=== PATIENT | male | born 1950 | race Caucasian/White ===

== ENCOUNTER 2020-05-29 10:45 | Inpatient (IN) ==
[2020-05-29] MEDS: DULoxetine DR 30 mg CAP PO SCH (14:38)
[2020-05-29] MEDS: Heparin 5000 UNITS/ML 1 mL VIAL SUBCUT SCH ×2 (14:38→22:17)
[2020-05-29] MEDS ORDERED: Morphine ORAL.SOLN 10 mg 2 mg/ml UDC 5 ml (10 mg) PO PRN (15:53)
[2020-05-30] MEDS ORDERED: cefTRIAXone 1 gm/50 mL NS BAG 1 GM/50 ML BAG IVPB SCH (00:01)
[2020-05-30] MEDS: Heparin 5000 UNITS/ML 1 mL VIAL SUBCUT SCH ×3 (05:32→20:38)
[2020-05-30 05:50] LABS: ABS Lymphocytes 1.1 10^3/ul (1.0-4.8); ABS Monocytes 1.1 10^3/ul (0-0.8); Hematocrit 36 % (42-52); Hemoglobin 12.2 g/dL (14.0-18.0); Lymphocyte % 5.4 %; Mean Corpuscular HGB Conc 34 g/dL (31-36); Mean Corpuscular Hemoglobin 31 pg (27-31); Mean Corpuscular Volume 91 fL (80-94); Platelet Count 253 10^3/uL (150-450); Red Blood Count 3.96 10^6 /uL (4.18-5.48); Red Cell Distribution Width 14 % (10-15); White Blood Count 20.3 10^3/uL (3.5-10.8)
[2020-05-30] MEDS ORDERED: Azithromycin 500 mg/250 ml NS 500 MG/250 ML BAG IVPB SCH (06:00)
[2020-05-30 06:14] LABS: BUN/Creatinine Ratio 29.4 (8-20); Blood Urea Nitrogen 25 mg/dL (6-24); CO2 Carbon Dioxide 24 mmol/L (22-32); Calcium 8.5 mg/dL (8.6-10.3); Chloride 108 mmol/L (101-111); EGFR African American 107.8 (>60); EGFR Non-African American 89.1 (>60); Glucose 124 mg/dL (70-100); Sodium 139 mmol/L (135-145)
[2020-05-30 06:17] LABS: Anion Gap 7 mmol/L (2-11)
[2020-05-30] MEDS: DULoxetine DR 30 mg CAP PO SCH (08:08)
[2020-05-30 11:20] LABS: Potassium Redraw 4.3 mmol/L (3.5-5.0)
[2020-05-31] MEDS: Heparin 5000 UNITS/ML 1 mL VIAL SUBCUT SCH ×3 (06:00→22:20)
[2020-05-31 07:01] LABS: ABS Lymphocytes 1.4 10^3/ul (1.0-4.8); ABS Monocytes 0.7 10^3/ul (0-0.8); ABS Neutrophils 10.2 10^3/ul (1.5-7.7); Eosinophil % 0.2 %; Hematocrit 37 % (42-52); Hemoglobin 12.8 g/dL (14.0-18.0); Lymphocyte % 11.4 %; Mean Corpuscular HGB Conc 34 g/dL (31-36); Mean Corpuscular Hemoglobin 31 pg (27-31); Mean Corpuscular Volume 91 fL (80-94); Mean Platelet Volume 8.1 fL (7.4-10.4); Platelet Count 272 10^3/uL (150-450); Red Blood Count 4.12 10^6 /uL (4.18-5.48); Red Cell Distribution Width 13 % (10-15); White Blood Count 12.4 10^3/uL (3.5-10.8)
[2020-05-31] MEDS: DULoxetine DR 30 mg CAP PO SCH (07:54)
[2020-06-01] MEDS: Heparin 5000 UNITS/ML 1 mL VIAL SUBCUT SCH ×3 (05:46→20:17)
[2020-06-01] MEDS: DULoxetine DR 30 mg CAP PO SCH (09:34)
[2020-06-02] MEDS: Heparin 5000 UNITS/ML 1 mL VIAL SUBCUT SCH (05:10)
[2020-06-02] MEDS: DULoxetine DR 30 mg CAP PO SCH (08:43)
[2020-06-02] MEDS ORDERED: Influenza VAC *QUAD* 2020-21* 0.5 ML SYRINGE IM ONE (11:00)
[2020-06-02 11:16] VITALS: BP 117/58
== END 2020-06-02 13:45 | disposition home or self-care (01) | DRG 193 ==
LOC: MED 11:28 → INTOOBSV 11:28 → MED 06-02 04:03
PROVIDERS: ADMIT Student in an Organized Health Care Education/Training Program; ATTEND Pediatrics

== ENCOUNTER 2020-09-04 12:34 | Inpatient (IN) ==
[2020-09-04 13:53] LABS: ABS Lymphocytes 0.5 10^3/ul (1.0-4.8); ABS Monocytes 0.3 10^3/ul (0-0.8); ABS Neutrophils 3.3 10^3/ul (1.5-7.7); Hematocrit 36 % (42-52); Hemoglobin 12.4 g/dL (14.0-18.0); Lymphocyte % 12.7 %; Mean Corpuscular HGB Conc 35 g/dL (31-36); Mean Corpuscular Hemoglobin 30 pg (27-31); Mean Corpuscular Volume 87 fL (80-94); Mean Platelet Volume 8.1 fL (7.4-10.4); Nucleated Red Blood Cells % 0.1; Platelet Count 210 10^3/uL (150-450); Red Blood Count 4.11 10^6 /uL (4.18-5.48); Red Cell Distribution Width 13 % (10-15); White Blood Count 4.2 10^3/uL (3.5-10.8)
[2020-09-04 14:10] LABS: Albumin 3.7 g/dL (3.2-5.2); Albumin/Globulin Ratio 1.3 (1-3); BUN/Creatinine Ratio 17.3 (8-20); Calcium 8.3 mg/dL (8.6-10.3); EGFR Non-African American 94.2 (>60); Globulin 2.9 g/dL (2-4); Magnesium 1.8 mg/dL (1.9-2.7); Potassium 3.5 mmol/L (3.5-5.0); Total Bilirubin 0.5 mg/dL (0.2-1.0); Total Protein 6.6 g/dL (6.4-8.9)
[2020-09-04 14:56] LABS: TSH Ultra Thyroid Stim Horm 0.58 mcIU/mL (0.34-5.60)
[2020-09-04] MEDS ORDERED: Magnesium Sulfate 2 gm BAG 2 GM/50 ML BAG IVPB ONE (16:05)
[2020-09-04] MEDS ORDERED: guaiFENesin 100 mg/5 ml LIQ unit dose cup PO PRN (16:09)
[2020-09-04] MEDS ORDERED: Al Hydrox/Mg Hydrox/Simet LIQ 30 ML UDC PO PRN (16:09)
[2020-09-04] MEDS ORDERED: Bismuth Subsalicylate 30 ML/527 MG ML PO PRN (16:09)
[2020-09-04] MEDS ORDERED: Polyethylene Glycol 3350 17 GM PACKET PO PRN (16:09)
[2020-09-04] MEDS: Calcium Carb (TUMS) 500 mg CHEW TAB PO SCH ×2 (20:57→21:37)
[2020-09-04] MEDS: Carbidopa/Levodop 25/100 MG TAB PO SCH (20:57)
[2020-09-04] MEDS: Magnesium Hydroxide LIQ 30 ML UDC PO SCH (20:58)
[2020-09-04] MEDS: Senna TAB 8.6 mg TAB PO SCH (20:58)
[2020-09-04] MEDS: Morphine 15 mg TAB (NF) PO SCH ×2 (21:04→21:38)
[2020-09-04] MEDS: Morphine ORAL.SOLN 10 mg 2 mg/ml UDC 5 ml (10 mg) PO SCH (21:37)
[2020-09-04] MEDS: Neosporin TOPICAL OINT PACKET TOPICAL SCH (21:37)
[2020-09-05 07:30] LABS: ABS Lymphocytes 0.8 10^3/ul (1.0-4.8); ABS Monocytes 0.3 10^3/ul (0-0.8); ABS Neutrophils 3.5 10^3/ul (1.5-7.7); Hematocrit 35 % (42-52); Hemoglobin 12.7 g/dL (14.0-18.0); Lymphocyte % 17.9 %; Mean Corpuscular HGB Conc 36 g/dL (31-36); Mean Corpuscular Hemoglobin 31 pg (27-31); Mean Corpuscular Volume 85 fL (80-94); Mean Platelet Volume 8.4 fL (7.4-10.4); Platelet Count 219 10^3/uL (150-450); Red Blood Count 4.14 10^6 /uL (4.18-5.48); Red Cell Distribution Width 13 % (10-15); White Blood Count 4.7 10^3/uL (3.5-10.8)
[2020-09-05 07:48] LABS: BUN/Creatinine Ratio 16.9 (8-20); Calcium 8.4 mg/dL (8.6-10.3); EGFR African American 132.7 (>60); EGFR Non-African American 109.7 (>60)
[2020-09-05] MEDS: Carbidopa/Levodop 25/100 MG TAB PO SCH ×2 (08:20→21:48)
[2020-09-05] MEDS: Calcium Carb (TUMS) 500 mg CHEW TAB PO SCH ×2 (08:20→21:48)
[2020-09-05] MEDS: DULoxetine DR 30 mg CAP PO SCH (08:20)
[2020-09-05] MEDS: Magnesium Hydroxide LIQ 30 ML UDC PO SCH ×2 (08:21→21:49)
[2020-09-05] MEDS: Morphine ORAL.SOLN 10 mg 2 mg/ml UDC 5 ml (10 mg) PO SCH ×4 (08:21→21:47)
[2020-09-05] MEDS: Neosporin TOPICAL OINT PACKET TOPICAL SCH (08:22)
[2020-09-05] MEDS ORDERED: NS 0.9% 1000 ml BAG 1,000 ML IV SCH (09:00)
[2020-09-05] MEDS: KCL 20 MEQ/100 ML IVPREMIX 20 MEQ/100 ML BAG IV SCH ×2 (09:08→12:51)
[2020-09-05] MEDS: Potassium Chlor 20 meq TAB.ER PO SCH ×2 (09:08→12:51)
[2020-09-05 10:10] LABS: Magnesium 1.8 mg/dL (1.9-2.7)
[2020-09-05] MEDS: Senna TAB 8.6 mg TAB PO SCH (21:49)
[2020-09-06 06:12] LABS: BUN/Creatinine Ratio 19.7 (8-20); Calcium 8.3 mg/dL (8.6-10.3); EGFR African American 122.7 (>60); EGFR Non-African American 101.4 (>60); Potassium 4.4 mmol/L (3.5-5.0)
[2020-09-06] MEDS: DULoxetine DR 30 mg CAP PO SCH (10:23)
[2020-09-06] MEDS: Morphine ORAL.SOLN 10 mg 2 mg/ml UDC 5 ml (10 mg) PO SCH ×4 (10:23→22:22)
[2020-09-06] MEDS: Neosporin TOPICAL OINT PACKET TOPICAL SCH (10:24)
[2020-09-06] MEDS: Carbidopa/Levodop 25/100 MG TAB PO SCH ×2 (10:24→22:21)
[2020-09-06] MEDS: Magnesium Hydroxide LIQ 30 ML UDC PO SCH ×2 (10:24→22:22)
[2020-09-06] MEDS: Calcium Carb (TUMS) 500 mg CHEW TAB PO SCH ×2 (10:24→22:19)
[2020-09-06] MEDS: Senna TAB 8.6 mg TAB PO SCH (22:22)
[2020-09-07] MEDS: Morphine ORAL.SOLN 10 mg 2 mg/ml UDC 5 ml (10 mg) PO SCH ×4 (12:52→20:47)
[2020-09-07] MEDS: Calcium Carb (TUMS) 500 mg CHEW TAB PO SCH ×2 (13:18→20:21)
[2020-09-07] MEDS: Enoxaparin 40 MG/0.4 ML SYR SUBCUT SCH (13:18)
[2020-09-07] MEDS: Magnesium Hydroxide LIQ 30 ML UDC PO SCH ×2 (13:18→20:45)
[2020-09-07] MEDS: Carbidopa/Levodop 25/100 MG TAB PO SCH ×2 (13:18→20:39)
[2020-09-07] MEDS: DULoxetine DR 30 mg CAP PO SCH (13:18)
[2020-09-07] MEDS: Neosporin TOPICAL OINT PACKET TOPICAL SCH (13:19)
[2020-09-07] MEDS: Senna TAB 8.6 mg TAB PO SCH (20:38)
[2020-09-08] MEDS ORDERED: Remdesivir 100 mg Vial 200 MG in NS 0.9% 250 ml 210 ML IV ONE (07:00)
[2020-09-08 07:50] LABS: ABS Lymphocytes 0.5 10^3/ul (1.0-4.8); ABS Monocytes 0.3 10^3/ul (0-0.8); Hematocrit 32 % (42-52); Hemoglobin 11.3 g/dL (14.0-18.0); Lymphocyte % 7.2 %; Mean Corpuscular HGB Conc 35 g/dL (31-36); Mean Corpuscular Hemoglobin 30 pg (27-31); Mean Corpuscular Volume 86 fL (80-94); Mean Platelet Volume 8.2 fL (7.4-10.4); Platelet Count 247 10^3/uL (150-450); Red Blood Count 3.72 10^6 /uL (4.18-5.48); Red Cell Distribution Width 14 % (10-15); White Blood Count 6.8 10^3/uL (3.5-10.8)
[2020-09-08 07:54] LABS: Albumin 3.3 g/dL (3.2-5.2); Calcium 7.9 mg/dL (8.6-10.3); Potassium 3.5 mmol/L (3.5-5.0); Total Bilirubin 0.6 mg/dL (0.2-1.0)
[2020-09-08 08:00] LABS: Albumin/Globulin Ratio 1.1 (1-3); BUN/Creatinine Ratio 24.6 (8-20); EGFR African American 137.2 (>60); EGFR Non-African American 113.4 (>60); Globulin 2.9 g/dL (2-4); Total Protein 6.2 g/dL (6.4-8.9)
[2020-09-08] MEDS: DULoxetine DR 30 mg CAP PO SCH (08:57)
[2020-09-08] MEDS: Carbidopa/Levodop 25/100 MG TAB PO SCH ×2 (08:57→20:18)
[2020-09-08] MEDS: Enoxaparin 40 MG/0.4 ML SYR SUBCUT SCH (08:58)
[2020-09-08] MEDS: Calcium Carb (TUMS) 500 mg CHEW TAB PO SCH ×2 (08:58→20:17)
[2020-09-08] MEDS: Morphine ORAL.SOLN 10 mg 2 mg/ml UDC 5 ml (10 mg) PO SCH ×4 (08:58→20:16)
[2020-09-08] MEDS: Neosporin TOPICAL OINT PACKET TOPICAL SCH (08:59)
[2020-09-08] MEDS: Magnesium Hydroxide LIQ 30 ML UDC PO SCH ×2 (08:59→20:20)
[2020-09-08 17:01] LABS: C Reactive Protein 43.31 mg/L (<8.01)
[2020-09-08 17:01] LABS: C Reactive Protein 129.24 mg/L (<8.01)
[2020-09-08] MEDS: Senna TAB 8.6 mg TAB PO SCH (20:18)
[2020-09-09 07:09] LABS: ABS Lymphocytes 0.6 10^3/ul (1.0-4.8); ABS Monocytes 0.4 10^3/ul (0-0.8); ABS Neutrophils 4.2 10^3/ul (1.5-7.7); Hematocrit 35 % (42-52); Lymphocyte % 12.4 %; Mean Corpuscular HGB Conc 35 g/dL (31-36); Mean Corpuscular Hemoglobin 30 pg (27-31); Mean Corpuscular Volume 87 fL (80-94); Mean Platelet Volume 8.7 fL (7.4-10.4); Nucleated Red Blood Cells % 0.1; Platelet Count 324 10^3/uL (150-450); Red Blood Count 3.98 10^6 /uL (4.18-5.48); Red Cell Distribution Width 13 % (10-15); White Blood Count 5.2 10^3/uL (3.5-10.8)
[2020-09-09 07:25] LABS: Albumin 3.3 g/dL (3.2-5.2); Albumin/Globulin Ratio 1.1 (1-3); BUN/Creatinine Ratio 34.2 (8-20); Calcium 8.4 mg/dL (8.6-10.3); EGFR African American 117.3 (>60); Magnesium 2.4 mg/dL (1.9-2.7); Potassium 4.4 mmol/L (3.5-5.0); Total Bilirubin 0.6 mg/dL (0.2-1.0); Total Protein 6.3 g/dL (6.4-8.9)
[2020-09-09 08:23] LABS: C Reactive Protein 140.04 mg/L (<8.01)
[2020-09-09] MEDS: Morphine ORAL.SOLN 10 mg 2 mg/ml UDC 5 ml (10 mg) PO SCH ×4 (09:40→21:12)
[2020-09-09] MEDS: Remdesivir 100 mg Vial 100 MG in NS 0.9% 250 ml 230 ML IV SCH (09:42)
[2020-09-09] MEDS: Magnesium Hydroxide LIQ 30 ML UDC PO SCH ×2 (09:42→19:38)
[2020-09-09] MEDS: Carbidopa/Levodop 25/100 MG TAB PO SCH ×2 (09:43→19:39)
[2020-09-09] MEDS: DULoxetine DR 30 mg CAP PO SCH (09:43)
[2020-09-09] MEDS: Calcium Carb (TUMS) 500 mg CHEW TAB PO SCH ×2 (09:43→19:38)
[2020-09-09] MEDS: Enoxaparin 40 MG/0.4 ML SYR SUBCUT SCH (10:04)
[2020-09-09] MEDS: Neosporin TOPICAL OINT PACKET TOPICAL SCH (10:04)
[2020-09-09] MEDS: Senna TAB 8.6 mg TAB PO SCH (19:39)
[2020-09-10] MEDS: Remdesivir 100 mg Vial 100 MG in NS 0.9% 250 ml 230 ML IV SCH ×2 (10:10→11:53)
[2020-09-10] MEDS: Magnesium Hydroxide LIQ 30 ML UDC PO SCH ×2 (10:19→19:41)
[2020-09-10] MEDS: Calcium Carb (TUMS) 500 mg CHEW TAB PO SCH ×2 (10:21→19:39)
[2020-09-10] MEDS: Carbidopa/Levodop 25/100 MG TAB PO SCH ×2 (10:22→19:40)
[2020-09-10] MEDS: DULoxetine DR 30 mg CAP PO SCH (10:22)
[2020-09-10] MEDS: Enoxaparin 40 MG/0.4 ML SYR SUBCUT SCH ×2 (10:27→10:56)
[2020-09-10] MEDS: Morphine ORAL.SOLN 10 mg 2 mg/ml UDC 5 ml (10 mg) PO SCH ×5 (10:28→19:41)
[2020-09-10] MEDS: Neosporin TOPICAL OINT PACKET TOPICAL SCH (11:19)
[2020-09-10] MEDS: Enoxaparin 30 MG/0.3 ML SYR SUBCUT SCH (19:39)
[2020-09-10] MEDS: Senna TAB 8.6 mg TAB PO SCH (19:40)
[2020-09-11] MEDS: Magnesium Hydroxide LIQ 30 ML UDC PO SCH ×2 (08:00→21:18)
[2020-09-11] MEDS: Enoxaparin 30 MG/0.3 ML SYR SUBCUT SCH ×2 (08:00→21:03)
[2020-09-11] MEDS: Calcium Carb (TUMS) 500 mg CHEW TAB PO SCH ×2 (08:00→21:04)
[2020-09-11] MEDS: Morphine ORAL.SOLN 10 mg 2 mg/ml UDC 5 ml (10 mg) PO SCH ×4 (08:01→21:09)
[2020-09-11] MEDS: Carbidopa/Levodop 25/100 MG TAB PO SCH ×2 (08:02→21:04)
[2020-09-11] MEDS: DULoxetine DR 30 mg CAP PO SCH (08:02)
[2020-09-11] MEDS: Neosporin TOPICAL OINT PACKET TOPICAL SCH (08:27)
[2020-09-11] MEDS: Remdesivir 100 mg Vial 100 MG in NS 0.9% 250 ml 230 ML IV SCH ×2 (09:16→10:09)
[2020-09-11] MEDS ORDERED: Lidocaine PATCH 5% PATCH ONE (09:20)
[2020-09-11] MEDS: Lidocaine PATCH 5% PATCH TRANSDERM SCH (11:05)
[2020-09-11 12:26] LABS: Urine Appearance Clear; Urine Bilirubin Negative (Negative); Urine Blood Negative (Negative); Urine Color Yellow; Urine Glucose Negative (Negative); Urine Ketones Trace (Negative); Urine Nitrite Negative (Negative); Urine Protein Negative (Negative); Urine Specific Gravity 1.028 (1.010-1.030); Urine Urobilinogen Negative (Negative)
[2020-09-11] MEDS: Senna TAB 8.6 mg TAB PO SCH (21:04)
[2020-09-11] MEDS: Lidocaine Patch REMOVE PATCH PATCH OFF SCH (21:18)
[2020-09-12 07:52] LABS: ABS Monocytes 0.8 10^3/ul (0-0.8); ABS Neutrophils 5.6 10^3/ul (1.5-7.7); Hematocrit 33 % (42-52); Hemoglobin 11.5 g/dL (14.0-18.0); Lymphocyte % 13.9 %; Mean Corpuscular HGB Conc 35 g/dL (31-36); Mean Corpuscular Hemoglobin 30 pg (27-31); Mean Corpuscular Volume 87 fL (80-94); Mean Platelet Volume 8.7 fL (7.4-10.4); Platelet Count 422 10^3/uL (150-450); Red Blood Count 3.82 10^6 /uL (4.18-5.48); Red Cell Distribution Width 13 % (10-15); White Blood Count 7.5 10^3/uL (3.5-10.8)
[2020-09-12 08:09] LABS: BUN/Creatinine Ratio 36.7 (8-20); EGFR Non-African American 96.7 (>60); Potassium 4.7 mmol/L (3.5-5.0)
[2020-09-12 08:51] LABS: Calcium 8.3 mg/dL (8.6-10.3)
[2020-09-12] MEDS: DULoxetine DR 30 mg CAP PO SCH (10:12)
[2020-09-12] MEDS: Carbidopa/Levodop 25/100 MG TAB PO SCH ×2 (10:12→21:18)
[2020-09-12] MEDS: Enoxaparin 30 MG/0.3 ML SYR SUBCUT SCH ×2 (10:13→21:18)
[2020-09-12] MEDS: Calcium Carb (TUMS) 500 mg CHEW TAB PO SCH ×2 (10:13→21:15)
[2020-09-12] MEDS: Lidocaine PATCH 5% PATCH TRANSDERM SCH (10:13)
[2020-09-12] MEDS: Morphine ORAL.SOLN 10 mg 2 mg/ml UDC 5 ml (10 mg) PO SCH ×4 (10:14→21:17)
[2020-09-12] MEDS: Neosporin TOPICAL OINT PACKET TOPICAL SCH (10:14)
[2020-09-12] MEDS: Magnesium Hydroxide LIQ 30 ML UDC PO SCH ×2 (10:14→21:19)
[2020-09-12] MEDS: Remdesivir 100 mg Vial 100 MG in NS 0.9% 250 ml 230 ML IV SCH (10:15)
[2020-09-12] MEDS: Senna TAB 8.6 mg TAB PO SCH (21:18)
[2020-09-12] MEDS: Lidocaine Patch REMOVE PATCH PATCH OFF SCH (21:21)
[2020-09-13] MEDS: Lidocaine PATCH 5% PATCH TRANSDERM SCH (08:33)
[2020-09-13] MEDS: Morphine ORAL.SOLN 10 mg 2 mg/ml UDC 5 ml (10 mg) PO SCH ×4 (08:38→20:24)
[2020-09-13] MEDS: DULoxetine DR 30 mg CAP PO SCH (08:39)
[2020-09-13] MEDS: Calcium Carb (TUMS) 500 mg CHEW TAB PO SCH ×2 (08:39→20:22)
[2020-09-13] MEDS: Carbidopa/Levodop 25/100 MG TAB PO SCH ×2 (08:39→20:26)
[2020-09-13] MEDS: Enoxaparin 30 MG/0.3 ML SYR SUBCUT SCH ×2 (08:40→20:22)
[2020-09-13] MEDS: Magnesium Hydroxide LIQ 30 ML UDC PO SCH ×2 (08:54→20:40)
[2020-09-13] MEDS: Neosporin TOPICAL OINT PACKET TOPICAL SCH (08:54)
[2020-09-13] MEDS: Lidocaine Patch REMOVE PATCH PATCH OFF SCH (20:40)
[2020-09-13] MEDS: Senna TAB 8.6 mg TAB PO SCH (20:40)
[2020-09-14] MEDS: Morphine ORAL.SOLN 10 mg 2 mg/ml UDC 5 ml (10 mg) PO SCH ×4 (09:38→22:47)
[2020-09-14] MEDS: Lidocaine PATCH 5% PATCH TRANSDERM SCH (09:39)
[2020-09-14] MEDS: Carbidopa/Levodop 25/100 MG TAB PO SCH ×2 (09:40→22:46)
[2020-09-14] MEDS: Calcium Carb (TUMS) 500 mg CHEW TAB PO SCH ×2 (09:40→22:46)
[2020-09-14] MEDS: Enoxaparin 30 MG/0.3 ML SYR SUBCUT SCH ×2 (09:40→22:46)
[2020-09-14] MEDS: DULoxetine DR 30 mg CAP PO SCH (09:40)
[2020-09-14] MEDS: Magnesium Hydroxide LIQ 30 ML UDC PO SCH ×2 (09:41→22:47)
[2020-09-14] MEDS: Neosporin TOPICAL OINT PACKET TOPICAL SCH (09:46)
[2020-09-14] MEDS: Lidocaine Patch REMOVE PATCH PATCH OFF SCH (22:46)
[2020-09-14] MEDS: Senna TAB 8.6 mg TAB PO SCH (22:46)
[2020-09-15] MEDS: DULoxetine DR 30 mg CAP PO SCH (08:13)
[2020-09-15] MEDS: Calcium Carb (TUMS) 500 mg CHEW TAB PO SCH (08:13)
[2020-09-15] MEDS: Carbidopa/Levodop 25/100 MG TAB PO SCH (08:14)
[2020-09-15] MEDS: Lidocaine PATCH 5% PATCH TRANSDERM SCH (08:15)
[2020-09-15] MEDS: Morphine ORAL.SOLN 10 mg 2 mg/ml UDC 5 ml (10 mg) PO SCH (08:15)
[2020-09-15] MEDS: Neosporin TOPICAL OINT PACKET TOPICAL SCH (08:21)
[2020-09-15] MEDS: Magnesium Hydroxide LIQ 30 ML UDC PO SCH (08:23)
[2020-09-15] MEDS: Enoxaparin 30 MG/0.3 ML SYR SUBCUT SCH (08:27)
[2020-09-15 10:18] VITALS: BP 122/61
== END 2020-09-15 11:25 | DRG 177 ==
LOC: ED 12:34 → MED 12:34
PROVIDERS: ADMIT Student in an Organized Health Care Education/Training Program; ATTEND Internal Medicine

== ENCOUNTER 2023-07-09 16:35 | Inpatient (IN) ==
[2023-07-09 18:31] LABS: ABS Lymphocytes 1.1 10^3/uL (1.0-4.8); ABS Monocytes 0.9 10^3/uL (0.0-1.1); ABS Neutrophils 13.7 10^3/uL (1.5-7.6); ABS Nucleated RBC 0.08 10^3/ul; Hematocrit 49.4 % (38-53); Lymphocyte % 6.7 %; Mean Corpuscular Hemoglobin 30.9 pg (27-33); Mean Corpuscular Hgb Conc 34.4 g/dL (31-36); Mean Corpuscular Volume 89.8 fL (80-97); Mean Platelet Volume 8.1 fL (7.5-11.2); Nucleated Red Blood Cells % 0.5 %/100WBC (0.0-0.8); Platelet Count 287 10^3/uL (150-450); Red Cell Distribution Width 13.8 % (12-17); White Blood Count 15.7 10^3/uL (3.6-10.2)
[2023-07-09 18:35] LABS: Albumin 4.8 g/dL (3.2-5.2); Albumin/Globulin Ratio 1.5 (1-3); Calcium 9.9 mg/dL (8.6-10.3); Creatinine, Serum 1.54 mg/dL (0.67-1.17); Globulin 3.3 g/dL (2-4); Potassium 3.8 mmol/L (3.5-5.0); Total Bilirubin 1.2 mg/dL (0.2-1.0); Total Protein 8.1 g/dL (6.4-8.9); eGFR CKD-EPI 47.3 (>60)
[2023-07-09] MEDS ORDERED: Iodixanol (CONTRAST) 320 MG/ML 100 ML SDV IV ONE (18:59)
[2023-07-09] MEDS ORDERED: Lactated Ringers 1000 ml BAG 1,000 ML IV ONE (19:12)
[2023-07-10] MEDS ORDERED: cefTRIAXone 1 gm/50 mL D5W 1 GM/50 ML BAG IV ONE (00:53)
[2023-07-10 01:21] LABS: Hematocrit 44.4 % (38-53); Hemoglobin 15.2 g/dL (13.2-16.3); Mean Corpuscular Hemoglobin 30.6 pg (27-33); Mean Corpuscular Hgb Conc 34.3 g/dL (31-36); Mean Corpuscular Volume 89.3 fL (80-97); Mean Platelet Volume 7.9 fL (7.5-11.2); Platelet Count 246 10^3/uL (150-450); Red Blood Count 4.98 10^6/uL (4.06-5.63); Red Cell Distribution Width 13.6 % (12-17); White Blood Count 16.8 10^3/uL (3.6-10.2)
[2023-07-10 01:58] LABS: C Reactive Protein 108.94 mg/L (<8.01); Calcium 9.4 mg/dL (8.6-10.3); Creatinine, Serum 1.33 mg/dL (0.67-1.17); Potassium 3.9 mmol/L (3.5-5.0); eGFR CKD-EPI 56.4 (>60)
[2023-07-10 01:58] LABS: ABS Basophils 0.1 10^3/uL (0.0-0.1); ABS Lymphocytes 0.8 10^3/uL (1.0-4.8); ABS Monocytes 1.1 10^3/uL (0.0-1.1); ABS Neutrophils 14.8 10^3/uL (1.5-7.6); ABS Nucleated RBC 0.01 10^3/ul; Lymphocyte % 4.8 %; Nucleated Red Blood Cells % 0.1 %/100WBC (0.0-0.8)
[2023-07-10] MEDS ORDERED: Lactated Ringers 1000 ml BAG 1,000 ML IV ONE ×2 (02:07→12:09)
[2023-07-10 02:28] LABS: PCO2 Arterial 32 mmHg (35-45); PO2 Arterial 67 mmHg (80-100)
[2023-07-10] MEDS ORDERED: D5W 1000 ml BAG 1,000 ML IV SCH ×3 (04:00→19:00)
[2023-07-10] MEDS ORDERED: Azithromycin 500 mg/250 ml NS 500 MG/250 ML BAG IVPB SCH (06:00)
[2023-07-10 07:20] LABS: Calcium 9.4 mg/dL (8.6-10.3); Creatinine, Serum 1.26 mg/dL (0.67-1.17); Potassium 3.8 mmol/L (3.5-5.0); eGFR CKD-EPI 60.2 (>60)
[2023-07-10 23:07] LABS: Calcium 8.6 mg/dL (8.6-10.3); Creatinine, Serum 1.13 mg/dL (0.67-1.17); Potassium 3.4 mmol/L (3.5-5.0); eGFR CKD-EPI 68.6 (>60)
[2023-07-11] MEDS ORDERED: cefTRIAXone 1 gm/50 mL D5W 1 GM/50 ML BAG IV SCH (02:00)
[2023-07-11] MEDS: cefTRIAXone 1 gm/50 mL D5W 1 GM/50 ML BAG IV SCH (02:04)
[2023-07-11] MEDS ORDERED: Azithromycin 500 mg/250 ml NS 500 MG/250 ML BAG IVPB SCH (06:00)
[2023-07-11 06:27] LABS: Hematocrit 36.7 % (38-53); Hemoglobin 12.6 g/dL (13.2-16.3); Mean Corpuscular Hemoglobin 30.6 pg (27-33); Mean Corpuscular Hgb Conc 34.4 g/dL (31-36); Mean Platelet Volume 8.6 fL (7.5-11.2); Platelet Count 194 10^3/uL (150-450); Red Blood Count 4.12 10^6/uL (4.06-5.63); Red Cell Distribution Width 13.4 % (12-17); White Blood Count 17.2 10^3/uL (3.6-10.2)
[2023-07-11 06:50] LABS: ABS Basophils 0.1 10^3/uL (0.0-0.1); ABS Eosinophils 0.1 10^3/uL (0.0-0.5); ABS Lymphocytes 1.4 10^3/uL (1.0-4.8); ABS Monocytes 0.7 10^3/uL (0.0-1.1); Calcium 8.3 mg/dL (8.6-10.3); Creatinine, Serum 1.1 mg/dL (0.67-1.17); Eosinophil % 0.4 %; Magnesium 2.2 mg/dL (1.9-2.7); Potassium 3.2 mmol/L (3.5-5.0); eGFR CKD-EPI 70.9 (>60)
[2023-07-11] MEDS ORDERED: Lactated Ringers 1000 ml BAG 1,000 ML IV ONE (08:13)
[2023-07-11 12:09] LABS: Urine Appearance Cloudy; Urine Bilirubin Negative (Negative); Urine Blood 3+ (Negative); Urine Color Amber; Urine Glucose Negative (Negative); Urine Ketones Negative (Negative); Urine Nitrite Negative (Negative); Urine Protein 1+(30 mg/dL) (Negative); Urine Specific Gravity 1.027 (1.002-1.030); Urine Urobilinogen Negative (Negative)
[2023-07-11 12:42] LABS: Urine Bacteria Absent (Absent); Urine Red Blood Cell 3+(>10/hpf) (Absent); Urine White Blood Cell 3+(>20/hpf) (Absent)
[2023-07-11] MEDS: Azithromycin 500 mg/250 ml NS 500 MG/250 ML BAG IVPB SCH (14:07)
[2023-07-11] MEDS ORDERED: D5W 1000 ml BAG 1,000 ML IV SCH (21:00)
[2023-07-11] MEDS: Potassium Chloride LIQUID 20 MEQ/15 ML LIQUID PO SCH ×2 (22:00→23:53)
[2023-07-12] MEDS: cefTRIAXone 1 gm/50 mL D5W 1 GM/50 ML BAG IV SCH (01:17)
[2023-07-12 08:48] LABS: ABS Eosinophils 0.1 10^3/uL (0.0-0.5); ABS Lymphocytes 0.8 10^3/uL (1.0-4.8); ABS Monocytes 0.5 10^3/uL (0.0-1.1); ABS Neutrophils 9.9 10^3/uL (1.5-7.6); Eosinophil % 0.5 %; Hematocrit 37.2 % (38-53); Hemoglobin 12.9 g/dL (13.2-16.3); Lymphocyte % 6.8 %; Mean Corpuscular Hemoglobin 30.8 pg (27-33); Mean Corpuscular Hgb Conc 34.8 g/dL (31-36); Mean Corpuscular Volume 88.5 fL (80-97); Platelet Count 218 10^3/uL (150-450); Red Cell Distribution Width 13.3 % (12-17); White Blood Count 11.3 10^3/uL (3.6-10.2)
[2023-07-12 09:04] LABS: Calcium 8.4 mg/dL (8.6-10.3); Creatinine, Serum 0.79 mg/dL (0.67-1.17); Magnesium 2.2 mg/dL (1.9-2.7); Potassium 3.6 mmol/L (3.5-5.0); eGFR CKD-EPI 93.8 (>60)
[2023-07-12] MEDS: Azithromycin 500 mg/250 ml NS 500 MG/250 ML BAG IVPB SCH (15:09)
[2023-07-13] MEDS: cefTRIAXone 1 gm/50 mL D5W 1 GM/50 ML BAG IV SCH (03:37)
[2023-07-13 08:58] LABS: ABS Eosinophils 0.1 10^3/uL (0.0-0.5); ABS Lymphocytes 0.7 10^3/uL (1.0-4.8); ABS Monocytes 0.6 10^3/uL (0.0-1.1); ABS Nucleated RBC 0.01 10^3/ul; Eosinophil % 0.8 %; Hemoglobin 13.6 g/dL (13.2-16.3); Lymphocyte % 7.8 %; Mean Corpuscular Hemoglobin 30.9 pg (27-33); Mean Corpuscular Volume 88.3 fL (80-97); Mean Platelet Volume 8.8 fL (7.5-11.2); Nucleated Red Blood Cells % 0.1 %/100WBC (0.0-0.8); Platelet Count 231 10^3/uL (150-450); Red Blood Count 4.41 10^6/uL (4.06-5.63); Red Cell Distribution Width 13.4 % (12-17); White Blood Count 9.4 10^3/uL (3.6-10.2)
[2023-07-13 09:22] LABS: Albumin 3.4 g/dL (3.2-5.2); Albumin/Globulin Ratio 1.2 (1-3); Calcium 8.3 mg/dL (8.6-10.3); Creatinine, Serum 0.74 mg/dL (0.67-1.17); Globulin 2.9 g/dL (2-4); Potassium 3.3 mmol/L (3.5-5.0); Total Bilirubin 0.7 mg/dL (0.2-1.0); Total Protein 6.3 g/dL (6.4-8.9); eGFR CKD-EPI 95.7 (>60)
[2023-07-13] MEDS: Azithromycin 500 mg/250 ml NS 500 MG/250 ML BAG IVPB SCH (14:21)
[2023-07-13] MEDS ORDERED: Potassium Chlor 20 meq TAB.ER PO ONE (15:40)
[2023-07-13] MEDS ORDERED: KCL 20 MEQ/100 ML IVPREMIX 20 MEQ/100 ML BAG IV ONE (17:30)
[2023-07-13] MEDS: Enoxaparin 40 MG/0.4 ML SYR SUBCUT SCH (18:39)
[2023-07-13 22:58] LABS: PCO2 Arterial 35 mmHg (35-45); PO2 Arterial 86 mmHg (80-100)
[2023-07-14] MEDS: cefTRIAXone 1 gm/50 mL D5W 1 GM/50 ML BAG IV SCH (01:49)
[2023-07-14 06:47] LABS: Calcium 8.5 mg/dL (8.6-10.3); Creatinine, Serum 0.74 mg/dL (0.67-1.17); Magnesium 2.2 mg/dL (1.9-2.7); Potassium 3.5 mmol/L (3.5-5.0); eGFR CKD-EPI 95.7 (>60)
[2023-07-14] MEDS ORDERED: NS 0.9% 1000 ml BAG 1,000 ML IV SCH (08:15)
[2023-07-14] MEDS: Azithromycin 500 mg/250 ml NS 500 MG/250 ML BAG IVPB SCH (12:37)
[2023-07-14] MEDS: NS 0.9% 1000 ml BAG 1,000 ML IV SCH (14:30)
[2023-07-14] MEDS: Enoxaparin 40 MG/0.4 ML SYR SUBCUT SCH (17:10)
[2023-07-15] MEDS: cefTRIAXone 1 GM Q24H (ADVAN) IVPB SCH (02:49)
[2023-07-15 05:41] LABS: ABS Basophils 0.1 10^3/uL (0.0-0.1); ABS Eosinophils 0.2 10^3/uL (0.0-0.5); ABS Lymphocytes 1.1 10^3/uL (1.0-4.8); ABS Monocytes 0.7 10^3/uL (0.0-1.1); ABS Neutrophils 7.9 10^3/uL (1.5-7.6); ABS Nucleated RBC 0.01 10^3/ul; Eosinophil % 1.9 %; Hematocrit 39.6 % (38-53); Hemoglobin 13.9 g/dL (13.2-16.3); Lymphocyte % 11.4 %; Mean Corpuscular Hemoglobin 30.7 pg (27-33); Mean Corpuscular Hgb Conc 35.2 g/dL (31-36); Mean Corpuscular Volume 87.3 fL (80-97); Mean Platelet Volume 8.7 fL (7.5-11.2); Nucleated Red Blood Cells % 0.1 %/100WBC (0.0-0.8); Platelet Count 303 10^3/uL (150-450); Red Blood Count 4.54 10^6/uL (4.06-5.63)
[2023-07-15 06:08] LABS: Calcium 8.5 mg/dL (8.6-10.3); Creatinine, Serum 0.74 mg/dL (0.67-1.17); Potassium 3.7 mmol/L (3.5-5.0); eGFR CKD-EPI 95.7 (>60)
[2023-07-15] MEDS: NS 0.9% 1000 ml BAG 1,000 ML IV SCH ×2 (07:54→17:00)
[2023-07-15 10:00] LABS: C Reactive Protein 74.36 mg/L (<8.01)
[2023-07-15] MEDS: Azithromycin 500 mg/250 ml NS 500 MG/250 ML BAG IVPB SCH (12:11)
[2023-07-15] MEDS: Enoxaparin 40 MG/0.4 ML SYR SUBCUT SCH (16:39)
[2023-07-16] MEDS: cefTRIAXone 1 GM Q24H (ADVAN) IVPB SCH (01:40)
[2023-07-16] MEDS: NS 0.9% 1000 ml BAG 1,000 ML IV SCH ×2 (06:07→19:37)
[2023-07-16] MEDS: Enoxaparin 40 MG/0.4 ML SYR SUBCUT SCH (16:04)
[2023-07-17] MEDS: cefTRIAXone 1 GM Q24H (ADVAN) IVPB SCH (01:56)
[2023-07-17 09:57] LABS: ABS Basophils 0.1 10^3/uL (0.0-0.1); ABS Eosinophils 0.2 10^3/uL (0.0-0.5); ABS Lymphocytes 1.4 10^3/uL (1.0-4.8); ABS Monocytes 0.6 10^3/uL (0.0-1.1); ABS Neutrophils 6.3 10^3/uL (1.5-7.6); Eosinophil % 2.2 %; Hematocrit 36.4 % (38-53); Mean Corpuscular Hemoglobin 30.7 pg (27-33); Mean Corpuscular Hgb Conc 35.6 g/dL (31-36); Mean Corpuscular Volume 86.1 fL (80-97); Mean Platelet Volume 8.7 fL (7.5-11.2); Platelet Count 400 10^3/uL (150-450); Red Blood Count 4.23 10^6/uL (4.06-5.63); White Blood Count 8.6 10^3/uL (3.6-10.2)
[2023-07-17] MEDS: NS 0.9% 1000 ml BAG 1,000 ML IV SCH (10:18)
[2023-07-17 10:19] LABS: Creatinine, Serum 0.61 mg/dL (0.67-1.17); Potassium 3.2 mmol/L (3.5-5.0); eGFR CKD-EPI 101.4 (>60)
[2023-07-17] MEDS ORDERED: KCL 20 MEQ/100 ML IVPREMIX 20 MEQ/100 ML BAG IV ONE (17:53)
[2023-07-17] MEDS: Enoxaparin 40 MG/0.4 ML SYR SUBCUT SCH (18:29)
[2023-07-18] MEDS: NS 0.9% 1000 ml BAG 1,000 ML IV SCH ×2 (00:37→15:18)
[2023-07-18] MEDS ORDERED: cefTRIAXone 1 gm/50 mL D5W 1 GM/50 ML BAG IV SCH (02:00)
[2023-07-18] MEDS: KCL 20 MEQ/100 ML IVPREMIX 20 MEQ/100 ML BAG IV SCH ×2 (08:38→16:25)
[2023-07-18 09:25] LABS: ABS Basophils 0.1 10^3/uL (0.0-0.1); ABS Eosinophils 0.1 10^3/uL (0.0-0.5); ABS Lymphocytes 1.2 10^3/uL (1.0-4.8); ABS Monocytes 0.5 10^3/uL (0.0-1.1); ABS Neutrophils 7.6 10^3/uL (1.5-7.6); ABS Nucleated RBC 0.02 10^3/ul; Eosinophil % 1.4 %; Hemoglobin 14.1 g/dL (13.2-16.3); Lymphocyte % 12.7 %; Mean Corpuscular Hemoglobin 30.3 pg (27-33); Mean Corpuscular Hgb Conc 35.3 g/dL (31-36); Mean Corpuscular Volume 85.7 fL (80-97); Mean Platelet Volume 8.8 fL (7.5-11.2); Nucleated Red Blood Cells % 0.2 %/100WBC (0.0-0.8); Platelet Count 433 10^3/uL (150-450); Red Blood Count 4.66 10^6/uL (4.06-5.63); Red Cell Distribution Width 12.9 % (12-17); White Blood Count 9.5 10^3/uL (3.6-10.2)
[2023-07-18 10:21] LABS: Calcium 8.5 mg/dL (8.6-10.3); Creatinine, Serum 0.62 mg/dL (0.67-1.17); Magnesium 1.8 mg/dL (1.9-2.7); Potassium 3.6 mmol/L (3.5-5.0); eGFR CKD-EPI 100.9 (>60)
[2023-07-18] MEDS: Enoxaparin 40 MG/0.4 ML SYR SUBCUT SCH (16:24)
[2023-07-19] MEDS: NS 0.9% 1000 ml BAG 1,000 ML IV SCH (04:19)
[2023-07-19] MEDS ORDERED: Magnesium Hydroxide LIQ 30 ML UDC PO PRN (10:56)
[2023-07-19 12:30] LABS: Calcium 8.8 mg/dL (8.6-10.3); Creatinine, Serum 0.72 mg/dL (0.67-1.17); Potassium 4.1 mmol/L (3.5-5.0); eGFR CKD-EPI 96.5 (>60)
[2023-07-19 15:01] VITALS: BP 109/68
== END 2023-07-19 15:45 | DRG 193 ==
LOC: EDHOLD 16:35 → ED 16:35 → MEDTELE 07-10 11:14 → SUATTDRO 07-11 10:26
PROVIDERS: ADMIT Internal Medicine; ATTEND Internal Medicine